=== PATIENT | female | born 1985 | race American Indian/Alaskan Native ===

== ENCOUNTER 2019-06-29 19:41 | Emergency (ER) | payer OTHER ==
[2019-06-29 19:49] VITALS: BP 138/89
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
== END 2019-06-29 22:05 | disposition home or self-care (01) ==
LOC: ED 19:41
DX: S00.83XA Contusion of other part of head, initial encounter (principal); F32.9 Major depressive disorder, single episode, unspecified; J45.909 Unspecified asthma, uncomplicated; Z98.51 Tubal ligation status; Z98.890 Other specified postprocedural states; Z79.899 Other long term (current) drug therapy; Z88.0 Allergy status to penicillin
CPT/HCPCS: 70486